=== PATIENT | female | born 1975 | race Two or more races ===

== ENCOUNTER 2024-03-05 07:33 | Inpatient (IN) | payer OTHER ==
[~2024-03-05] VITALS: Ht 182.9 cm; Wt 110.2 kg
[2024-03-05] MEDS ORDERED: FOLIC ACID0.4 MG PO (07:38)
[2024-03-05] MEDS ORDERED: TOPROL XL50 M1 PO (07:38)
[2024-03-05] MEDS ORDERED: JENTADUETO 2.51 EACH PO (07:38)
[2024-03-05] MEDS ORDERED: ELIQUIS5 MG PO (07:38)
[2024-03-05] MEDS ORDERED: LANTUS SOL100 UNIT/1 SUBCUTANEO (07:39)
[2024-03-05] MEDS ORDERED: ONDANSETRON HCL 2 MG/ML VIAL IV STA (08:33)
[2024-03-05] MEDS ORDERED: 0.9 % SODIUM CHLORIDE 1,000 ML IV STA (08:33)
[2024-03-05 09:46] LABS: HEMATOCRIT 32.1 % (36.0-45.00); HEMOGLOBIN 11.2 g/dL (12.0-15.00); MEAN CORPUSCULAR HEMOGLOBIN 30.3 pg (27.00-32.0); MEAN CORPUSCULAR HGB CONC 34.8 g/dl (32.0-36.0); PLATELET COUNT 472 K/uL (150-450); RED BLOOD COUNT 3.69 M/uL (4.00-6.00); RED CELL DISTRIBUTION WIDTH 13.8 % (11.5-14.5)
[2024-03-05 10:21] LABS: INR 1.21; PROTHROMBIN TIME 12.5 SECONDS (9.0-11.5)
[2024-03-05 10:24] LABS: CALCIUM 9.2 mg/dL (8.5-10.1); CREATININE SERUM 1.21 mg/dL (0.55-1.02); GFR 47.9; POTASSIUM 3.32 mEq/L (3.5-5.1)
[2024-03-05] MEDS ORDERED: ACETAMINOPHEN 500 MG GEL..CAP PO ONE (10:30)
[2024-03-05] MEDS ORDERED: INSULIN REGULAR, HUMAN 1,000 UNIT/10 ML UNITS IV ONE (14:30)
[2024-03-05] MEDS ORDERED: PIPERACILLIN/TAZOBACTAM SODIUM 3.375 GM VIAL IV ONE (14:45)
[2024-03-05] MEDS ORDERED: ACETAMINOPHEN 500 MG GEL..CAP PO PRN (17:45)
[2024-03-05] MEDS ORDERED: MEPERIDINE HCL/PF 25 MG/ML VIAL IM PRN (17:45)
[2024-03-05] MEDS ORDERED: ONDANSETRON HCL 4 MG in 0.9 % SODIUM CHLORIDE 50 ML IV PRN (17:45)
[2024-03-05] MEDS ORDERED: PIPERACILLIN/TAZOBACTAM SODIUM 3.375 GM in 0.9 % SODIUM CHLORIDE 100 ML IV SCH (18:00)
[2024-03-05] MEDS ORDERED: HYOSCYAMINE SULFATE 0.125 MG TAB.SUBL PO ONE (18:15)
[2024-03-05] MEDS ORDERED: DEXTROSE 50 % IN WATER 0.5 G/ML DISP.SYRIN IV PRN (19:15)
[2024-03-05] MEDS ORDERED: INSULIN LISPRO 1,000 UNIT/10 ML UNITS SUBCUTANEO PRN (19:15)
[2024-03-05] MEDS ORDERED: 0.9 % SODIUM CHLORIDE 1,000 ML IV SCH (20:45)
[2024-03-05] MEDS ORDERED: ENOXAPARIN SODIUM 80 MG/0.8 ML SYRINGE SUBCUTANEO SCH (21:00)
[2024-03-05 22:11] LABS: PH,URINE 5.5 (5.0-8.0); URINE APPEARANCE Turbid; URINE BILIRRUBIN Negative (NEGATIVE); URINE BLOOD Moderate; URINE COLOR Yellow; URINE GLUCOSE Negative (NEGATIVE); URINE LEUKOCYTE Moderate; URINE NITRATE Negative
[2024-03-05 22:12] LABS: URINE BACTERIA 9743.4 uL (0.0-1933); URINE EPITHELIAL CELLS 121.3 uL (0.0-38.8); URINE RBC 542.3 uL (0.0-20.8); URINE WBC 911.7 uL (0.0-23.2)
[2024-03-05 22:25] LABS: URINE PROTEIN 100 (NEGATIVE); URINE YEAST FEW /hpf
[2024-03-06] MEDS ORDERED: DIATRIZOATE MEGLUMINE, SODIUM 30 ML BOTTLE PO NR (08:15)
[2024-03-06] MEDS ORDERED: METOPROLOL SUCCINATE 50 MG TAB.SR.24H PO SCH (09:00)
[2024-03-06] MEDS ORDERED: FAMOTIDINE/PF 20 MG in 0.9 % SODIUM CHLORIDE 8 ML IV PUSH SCH ×2 (09:00→21:00)
== END 2024-03-08 12:36 | disposition home or self-care (01) | DRG 760 ==
LOC: ER 07:34 → SURH 17:47 → SEC-K 17:47 → SURH 19:30
PROVIDERS: Emergency Medicine; General Practice; ADMIT Internal Medicine; ATTEND Internal Medicine
PROC: BW40ZZZ Ultrasonography of Abdomen (ICD-10-PCS; principal; 2024-03-05)
PROC: BW21YZZ Computerized Tomography (CT Scan) of Abdomen and Pelvis using Other Contrast (ICD-10-PCS; 2024-03-06)
DX: D25.1 Intramural leiomyoma of uterus (principal); K80.10 Calculus of gallbladder with chronic cholecystitis without obstruction; K90.49 Malabsorption due to intolerance, not elsewhere classified; N17.9 Acute kidney failure, unspecified; D72.829 Elevated white blood cell count, unspecified; R19.01 Right upper quadrant abdominal swelling, mass and lump; E11.65 Type 2 diabetes mellitus with hyperglycemia; E86.0 Dehydration; I12.9 Hypertensive chronic kidney disease with stage 1 through stage 4 chronic kidney disease, or unspecified chronic kidney disease; N18.9 Chronic kidney disease, unspecified; E11.22 Type 2 diabetes mellitus with diabetic chronic kidney disease; Z79.4 Long term (current) use of insulin